=== PATIENT | female | born 1940 | race Caucasian/White ===

== ENCOUNTER 2021-02-09 10:00 | Outpatient (RCR) | payer OTHER, SELFPAY ==
--- NOTE | 2021-01-08 13:53 | PTOPEVAL ---
PHYSICAL THERAPY EVALUATION Thank you for referring Xin Kirkpatrick to [facility].? Gisele was evaluated for the dx of balance impairment/OA. The patient is scheduled to be seen for therapy?2 x/week for 4 weeks. Please review, sign, date and return this plan of care ERLIN. I agree with and certify that the following plan of care is medically necessary. Referring Physician Date Attending Provider: Lukas Delgado MD *PT Outpatient Evaluation Start: 01/08/21 12:36 Freq: Status: Active Protocol: Document 01/08/21 12:36 MLV (Rec: 01/08/21 13:39 MLV [id number]) Therapy Assessment Status Assessment Status Evaluation Evaluation Information Problem Diagnosis gait imbalance and OA Onset over last 3 years Additional Evaluation Detail Patient reports a decrease in balance and has had 5-7 falls in the last 6 months. Patient walks with a cane but admits to not using it all the time. The patient lives alone, I with all normal activities including driving/shopping. The patient reports feeling dizzy off and on and will fall because of it. The patient wants to be less dizzy feeling, walk without the cane and decrease her fear of falling. Pain Assessment Timing of Pain Assessment Timing of Pain Assessment Assessment Pain Scale Pain Scale Used Numeric (1 - 10) Self Report Pain Assessment Right Leg(s) Reported Pain Level 0 Pain Description Aching Pain Frequency Chronic Other Pain Description 3-5 with activity Pain Aggravating Factors None Pain Behaviors None Pain Score Pain Score 0: Self Report Interventions Used Interventions Used By Clinicians Education Pain Relief Interventions Used By None Patient Lower Extremity Range of Motion General Lower Extremity Range of Motion Reason Not Measured WFL/Left,WFL/Right Lower Extremity Muscle Strength Testing General Lower Extremity Strength Reason Not Measured WFL/Left,WFL/Right Gross Lower Extremity Strength (isometric tests) Posture Posture Standing Position Posture Evaluation View all Head/C-Spine Posture Forward Head Thoracic Spine Posture Increased Kyphosis Lumbar Spine Posture Decreased Lordosis Scapula Posture (L) Protracted,(R) Protracted Arm Posture (L) Internally Rotated,(R)
--- NOTE | 2021-02-09 16:41 | PTOPEVAL ---
PHYSICAL THERAPY DISCHARGE Thank you for referring Xin Kirkpatrick to [facility].? The patient has completed 9 visits for the dx of balance deficits/falls. Gisele has progressed well and goals are met. DC PT. Please review, sign, date and return this plan of care ERLIN. I agree with and certify the following plan of care is medically necessary. Referring Physician Date Attending Provider: Lukas Delgado MD *PT Outpatient Discharge Start: 01/08/21 12:36 Freq: Status: Active Protocol: Document 02/09/21 10:05 MLV (Rec: 02/09/21 11:01 MLV [id number]) Therapy Assessment Status Assessment Status Discharge Evaluation Information Problem Diagnosis gait imbalance and OA Onset over last 3 years Additional Evaluation Detail Patient reports feels she has improved quite a bit; her balance feels more steady and her head feels clearer . Patient denies trouble with her exercises and completes them 1 to 2 times a day. Patient also reports that it feels easier and safer to go up/down the steps. The patient has a follow up appt with the MD in 2 weeks. Pain Assessment Timing of Pain Assessment Timing of Pain Assessment Assessment Self Report Self Report Pain Level 0 Pain Score Pain Score 0: Self Report Balance Assessment Newman Balance Assessment Sitting to Standing Independent w/out Hands Unsupported Stance Ability Safely- 2 minutes Sitting Unsupported, Feet on Floor Safely- 2 minutes Standing to Sitting Safely, Minimal Hand Use Transfer Ability Safely, Minimal Hand Use Unsupported Stance- Eyes Closed Supervision, 10 seconds Unsupported Stance- Feet Together Supervision to maintain Reaching Forward while Standing Safely, 5 inches supervisory examiner Object From Floor Independent/Safe Look Behind Shoulder - Standing Shifts Weight Unilateral Turning 360 Degrees Turns , < 4 secs Unsupported Stance, Alternating Feet on 2 Steps w/Minimum Assist Stair Unsupported Tandem Stance Assist to Step-15 seconds Unilateral Leg Stance Lifts Leg/Unable to Hold NEWMAN Balance Evaluation Total Score (/56 42 points) Time Up Go (TUG) Timed Up and Go Test (TUG) (Seconds) 8 Assistive Devices Cane, Straight Functional Gait Assessment Requirements: A Marked 6 m (20 ft) Walkway That is Marked With a 30.48 cm (12 in) Width. Grading: Yordy the Highest Category That Applies Comments vestibular check: good
== END 2021-02-12 09:30 | disposition home or self-care (01) ==
LOC: ANHPT 10:00
PROVIDERS: PCP Family Medicine; Visit Provider Family Medicine
DX: R26.89 Other abnormalities of gait and mobility (principal); M89.49 Other hypertrophic osteoarthropathy, multiple sites
CPT/HCPCS: 97110; 97116; 97140; 97162

== ENCOUNTER 2021-02-27 11:55 | Outpatient (CLI) | payer OTHER, SELFPAY ==
--- NOTE | ~2021-02-27 | XR_ITS ---
EXAMINATION: XR chest 2V DATE: 02/27/2021 12:16 INDICATION: Wheezing, history of COPD and hypertension TECHNIQUE: PA and lateral views of the chest are obtained. COMPARISON: 04/20/2016 FINDINGS: The lungs are free of acute opacities. There is no pleural effusion or pneumothorax. The ca rdiomediastinal silhouette is normal. There is moderate thoracic spondylosis. IMPRESSION: 1. No acute cardiopulmonary abnormality. Reviewed, dictated and finalized at location A.
== END 2021-02-27 11:56 | disposition home or self-care (01) ==
PROVIDERS: PCP Family Medicine; Visit Provider Family Medicine
DX: R06.2 Wheezing (principal); M47.814 Spondylosis without myelopathy or radiculopathy, thoracic region
CPT/HCPCS: 71046

== ENCOUNTER 2021-07-18 12:05 | Outpatient (CLI) | payer OTHER, SELFPAY ==
--- NOTE | ~2021-07-18 | US_ITS ---
EXAMINATION: US venous doppler [facility] DATE: 07/18/2021 12:52 INDICATION: Bilateral lower limb edema TECHNIQUE: Addison scale images without and with compression and Doppler images of the bilateral lower e xtremity veins were obtained. COMPARISON: None FINDINGS: The right common femoral vein, profunda femoral vein, femoral vein, popliteal vein, peroneal trunk, p osterior tibial veins, and greater saphenous vein are patent. The left common femoral vein, profunda femoral vein, femoral vein, popliteal vein, peroneal trunk, po sterior tibial veins, and greater saphenous vein are patent. IMPRESSION: 1. Patent bilateral lower extremity veins. No evidence of deep venous thrombosis. Reviewed, dictated and finalized at location B. EKEEPER ENGINEERING IMPRESSION: 1. Patent bilateral lower extremity veins. No evidence of deep venous thrombosi s.
== END 2021-07-18 12:06 | disposition home or self-care (01) ==
LOC: ANHIMG 12:10
PROVIDERS: PCP Family Medicine; Visit Provider Nurse Practitioner Family
DX: R60.0 Localized edema (principal)
CPT/HCPCS: 93970

== ENCOUNTER 2021-07-23 12:56 | Outpatient (CLI) | payer OTHER, SELFPAY ==
[2021-07-23 13:36] LABS: Basophils Percent Auto 0.5 % (0.2-1.2); Eosinophils Absolute Auto 0.2 K/mm3 (0-0.3); Eosinophils Percent Auto 3.3 % (0-4.4); Hematocrit 35.2 % (37.0-47.0); Hemoglobin 11.7 g/dL (12.0-15.0); Immature Granulocyte Absolute 0.06 K/mm3 (0.00-0.031); Immature Granulocyte Percent A 0.9 % (0-0.5); Lymphocytes Percent Auto 15.5 % (18.3-44.2); Mean Corpuscular HGB Conc 33.2 g/dl (32-36); Mean Corpuscular Volume 93.4 fl (80-100); Mean Platelet Volume 10.8 fl (7.4-10.4); Monocytes Absolute Auto 1.8 K/mm3 (0.1-0.6); Monocytes Percent Auto 28.3 % (2.6-8.5); Neutrophils Absolute Auto 3.3 K/mm3 (1.3-6.7); Neutrophils Percent Auto 51.5 % (45.5-73.1); Platelet Count Result 189 k/mm3 (150-375); Red Blood Count 3.77 M/mm3 (4.2-5.4); Red Cell Distribution Width 12.5 % (11.5-14.5); White Blood Count 6.5 K/mm3 (4.5-10.0)
[2021-07-23 13:42] LABS: Anion Gap 6 mmol/L (8-16); Blood Urea Nitrogen 17 mg/dL (7-17); Calcium 9.5 mg/dL (8.4-10.2); Carbon Dioxide 30 mmol/L (22-30); Chloride 102 mmol/L (98-107); Estimated Glomerular Filt Rate > 60; Glucose 106 mg/dL (65-110); Potassium 4.3 mmol/L (3.4-5.0); Sodium 138 mmol/L (137-145)
[2021-07-23 13:50] LABS: NT Pro B Type Natriuretic Pept 462 pg/mL (5-100)
[2021-07-23 13:53] LABS: D Dimer 2.02 ug/mL (<0.48)
== END 2021-07-23 12:57 | disposition home or self-care (01) ==
PROVIDERS: PCP Family Medicine; Visit Provider Nurse Practitioner Family
DX: M79.89 Other specified soft tissue disorders (principal); R06.02 Shortness of breath
CPT/HCPCS: 36415; 80048; 83880; 85025; 85380

== ENCOUNTER 2021-07-25 11:32 | Outpatient (CLI) | payer OTHER, SELFPAY ==
--- NOTE | 2021-07-25 11:33 | ECG_ITS ---
Measurements Intervals [place] Rate: 67 P: 0 CO: 104 QRS: -26 QRSD: 97 T: 28 QT: 435 QTc: 461 Interpretive Statements SINUS RHYTHM WITH SHORT CO INTERVAL INCOMPLETE RIGHT BUNDLE BRANCH BLOCK BORDERLINE ECG Electronically Signed On 07-25-2021 12:13:16 MECHATRONICS TECHNICIAN by Jose A Wilson D.O.
[2021-07-25 12:30] LABS: D Dimer 1.62 ug/mL (<0.48)
== END 2021-07-25 11:33 | disposition home or self-care (01) ==
LOC: ANHLAB 11:33
PROVIDERS: PCP Family Medicine; Visit Provider Nurse Practitioner Family
DX: R79.89 Other specified abnormal findings of blood chemistry (principal); I10 Essential (primary) hypertension; I45.10 Unspecified right bundle-branch block
CPT/HCPCS: 36415; 85380; 93005

== ENCOUNTER 2021-08-03 13:21 | Outpatient (CLI) | payer OTHER, SELFPAY ==
[2021-08-03 14:36] LABS: D Dimer 1.82 ug/mL (<0.48)
[2021-08-03 14:38] LABS: Anion Gap 5 mmol/L (8-16); Blood Urea Nitrogen 15 mg/dL (7-17); Calcium 9.5 mg/dL (8.4-10.2); Carbon Dioxide 29 mmol/L (22-30); Chloride 102 mmol/L (98-107); Estimated Glomerular Filt Rate > 60; Glucose 101 mg/dL (65-110); Sodium 136 mmol/L (137-145)
[2021-08-03 14:46] LABS: NT Pro B Type Natriuretic Pept 817 pg/mL (5-100)
== END 2021-08-03 13:22 | disposition home or self-care (01) ==
PROVIDERS: PCP Family Medicine; Visit Provider Nurse Practitioner Family
DX: R06.02 Shortness of breath (principal); R79.89 Other specified abnormal findings of blood chemistry
CPT/HCPCS: 36415; 80048; 83880; 85380

== ENCOUNTER 2021-08-07 10:57 | Outpatient (CLI) | payer OTHER, SELFPAY ==
--- NOTE | ~2021-08-07 | CT_ITS ---
EXAMINATION: CTA chest PE protocol EXAM DATE: 08/07/2021 11:36 INDICATION: Shortness of breath and positive d-dimer. TECHNIQUE: Spiral CTA of the chest (pulmonary arteries) was performed with 100 cc Omnipaque 350 intr avenous contrast injection. Images were acquired during the pulmonary arterial phase. Coronal maxi mum intensity projection 3D-reconstructions were created by the technologist on dedicated workstation . Axial, coronal and sagittal reformatted images were reviewed. The dose-length product (DLP) for t his examination was 301.80 mGy-cm. The exposure was tailored according to patient size (auto mA exp osure control), and iterative reconstruction (ASIR) was used as additional dose reduction technique. There is no prior study for comparison. FINDINGS: Pulmonary arteries are well opacified and without intraluminal filling defects. No thora cic aortic dissection. The lungs are clear. There are no pleural or pericardial effusions. Trach eobronchial tree is patent. There is no mediastinal, hilar or axillary lymphadenopathy. There is no pneumothorax. Mild cardiomegaly. No evidence of coronary arterial calcification. There is small sliding gastroesophageal hiatal hernia. Imaged portions of right renal lesions consistent with cyst s. There is thoracic spondylosis without osteoblastic or osteolytic lesions identified. Old left r ib fractures. IMPRESSION: 1. No pulmonary emboli or acute cardiopulmonary findings. 2. Mild cardiomegaly. 3. Small hiatal hernia. Reviewed, dictated and finalized at location A. R PHOTOVOLTAIC SYSTEMS ENGINEER
== END 2021-08-07 10:58 | disposition home or self-care (01) ==
PROVIDERS: PCP Family Medicine; Visit Provider Nurse Practitioner Family
DX: R06.02 Shortness of breath (principal); R79.89 Other specified abnormal findings of blood chemistry; I51.7 Cardiomegaly; K44.9 Diaphragmatic hernia without obstruction or gangrene
CPT/HCPCS: 71275; Q9967

== ENCOUNTER 2021-08-14 12:50 | Outpatient (CLI) | payer OTHER, SELFPAY ==
[2021-08-14 13:21] LABS: D Dimer 1.34 ug/mL (<0.48)
[2021-08-14 13:24] LABS: Anion Gap 9 mmol/L (8-16); Blood Urea Nitrogen 15 mg/dL (7-17); Calcium 9.3 mg/dL (8.4-10.2); Carbon Dioxide 26 mmol/L (22-30); Chloride 104 mmol/L (98-107); Estimated Glomerular Filt Rate 60; Glucose 108 mg/dL (65-110); Potassium 4.1 mmol/L (3.4-5.0); Sodium 139 mmol/L (137-145)
[2021-08-14 13:32] LABS: NT Pro B Type Natriuretic Pept 321 pg/mL (5-100)
== END 2021-08-14 12:51 | disposition home or self-care (01) ==
PROVIDERS: PCP Family Medicine; Visit Provider Nurse Practitioner Family
DX: I51.7 Cardiomegaly (principal); R06.02 Shortness of breath; R79.89 Other specified abnormal findings of blood chemistry; R60.0 Localized edema
CPT/HCPCS: 36415; 80048; 83880; 85380

== ENCOUNTER 2021-11-05 11:00 | Outpatient (RCR) | payer OTHER, SELFPAY ==
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
--- NOTE | 2021-10-09 15:49 | PTOPEVAL ---
PHYSICAL THERAPY PROGRESS REPORT Thank you for referring Xin Kirkpatrick to [facility].? The patient is scheduled to be seen for therapy? 1x/week for 4 weeks. Please review, sign, date and return this plan of care ERLIN. I agree with and certify that the following plan of care is medically necessary. Referring Physician Date Attending Provider: Lukas Delgado MD Progress Diagnosis gait abnormality Self Report Pain Assessment Bilateral Leg(s) Reported Pain Level 5 Pain Description Aching,Soreness,Tightness Other Pain Description Pain in bilateral lower legs L >R. Pain decreases after movement Pain Aggravating Factors Prolonged Position Pain Score Pain Score 5: Self Report Additional Pain Score Comments Pt states this pain is decreased after her exercises and after moving around her home. Pt was educated on how movement can be used as a pain management technique. Interventions Used Interventions Used By Clinicians Exercise Lower Extremity Muscle Strength Testing Hip Strength Bilateral Hip Flexion Strength 4 Good Hip Extension Strength 4 Good Hip Abduction Strength 3 Fair Knee Strength Bilateral Knee Flexion Strength 4- Good - Knee Extension Strength 4- Good - Balance Assessment Time Up Go (TUG) Timed Up and Go Test (TUG) (Seconds) 22 Assistive Devices Walker, Rollator Comments 1 month ago - 21 sec with cane today - 32 sec without AD 5 Time Sit to Stand Time in Seconds 54.53 5 Time Sit to Stand Comments 1 month ago 37.67 without Query Text:Normative Data: If Greater armrests Than 15 Seconds, 74% Increase Risk for Today Pt was nervous of Recurrent Falls falling and exhibited fear during testing for unknown reasons Gait Assessment 2 Minute Walk Total Distance Walked (feet) 193 2 Minute Walk Gait Speed Score (feet/ 1.60 second) 2 Minute Walk Test Comments Today with rollator 1 month ago 179 ft with cane Stair Climbing Assessment Stair Climbing Assessment Stair Climbing Assistive Devices Railings Number of Steps Climbed (Steps) 4 Number of Repetitions (Repetitions) 2 Technique Alternating Steps Stair Climbing Direction Both Up and Down Stair Climbing Ability Standby Assistance Stair Climbing Comments very slow requiring significant increased time to perform PT Clinical Summary
--- NOTE | 2021-11-05 11:41 | PTOPEVAL ---
PHYSICAL THERAPY DISCHARGE NOTE Thank you for referring Xin Kirkpatrick to [facility].? Please review, sign, date and return this plan of care ERLIN. I agree with and certify that the following plan of care is medically necessary. Referring Physician Date Referring Physician: Lukas Delgado MD Discharge Diagnosis gait abnormality Subjective Information states that she feels like she Query Text:As Reported By Patient/ is stronger and more capable. Family uses her rollator in and out of the clinic. She gets around her home and community with the rollator. Still states she has difficulty with stairs but continues to be resistant to asking family for help with laundry in the basement. Self Report Pain Assessment Bilateral Leg(s) Reported Pain Level 3 Pain Description Aching,Soreness,Tightness Other Pain Description . Pain Aggravating Factors Prolonged Position Interventions Used By Clinicians Exercise,Rest Pain Relief Interventions Used By Medication Patient Lower Extremity Muscle Strength Testing Hip Strength Bilateral Hip Flexion Strength 4+ Good + Hip Extension Strength 4+ Good + Hip Abduction Strength 4- Good - Knee Strength Bilateral Knee Flexion Strength 4 Good Knee Extension Strength 4 Good Balance Assessment Time Up Go (TUG) Timed Up and Go Test (TUG) (Seconds) 16 Assistive Devices Walker, Rollator Comments 1month ago: 22seconds with rollator 2 months ago - 21 sec with cane 5 Time Sit to Stand Time in Seconds 19.04 5 Time Sit to Stand Comments 1month ago: 54.53seconds Query Text:Normative Data: If Greater 2 months ago 37.67 without Than 15 Seconds, 74% Increase Risk for armrests Recurrent Falls Today Pt was nervous of falling and exhibited fear during testing for unknown reasons Gait Assessment 2 Minute Walk Total Distance Walked (feet) 286 2 Minute Walk Gait Speed Score (feet/ 2.38 second) 2 Minute Walk Test Comments 1month ago: 193 (1.6ft/seconds ) with rollator 2months ago 179 ft with cane General Exercise General Exercises Side Bilateral Exercise Type Active Exercise Description reviewed HEP Query Text:Record Sets, Reps, -she self issued squats for
== END 2021-11-06 11:06 | disposition home or self-care (01) ==
LOC: ANHPT 11:00
PROVIDERS: PCP Family Medicine; Visit Provider Family Medicine
DX: R27.0 Ataxia, unspecified (principal); I51.7 Cardiomegaly
CPT/HCPCS: 97110; 97116; 97162; 97530

== ENCOUNTER 2021-12-13 11:53 | Outpatient (CLI) | payer OTHER, SELFPAY ==
--- NOTE | ~2021-12-13 | XR_ITS ---
XR lumbar spine 2-3V DATE: 12/13/2021 12:10 INDICATION: Low back pain. No injury. TECHNIQUE: AP, lateral, coned lateral lumbosacral views COMPARISON: 07/17/2017 lumbar spine FINDINGS: There is mild thoracolumbar levoscoliosis. Diffuse osteopenia. There is grade 2 anterolisthesis at L4-5. There is moderate degenerative disc disease of the lumbar spine, relatively sparing L5-S1. Degenerative change at the mid and lower lumbar apophyseal joints. No fracture or bone destruction is evident. The lumbar pedicles are intact. The sacroiliac joints are intact. IMPRESSION: Mild thoracolumbar levoscoliosis Grade 2 anterolisthesis at L4-5; degenerative change at the apophyseal joints in the mid and lower mayank mbar spine Reviewed, dictated and finalized at location A. IMPRESSION: Mild thoracolumbar levoscoliosis Grade 2 anterolisthesis at L4-5; degenerative change at the apophyseal joints i n the mid and lower lumbar spine
== END 2021-12-13 11:54 | disposition home or self-care (01) ==
PROVIDERS: PCP Family Medicine; Visit Provider Physician Assistant Medical
DX: M54.50 Low back pain, unspecified (principal); M41.85 Other forms of scoliosis, thoracolumbar region; M43.16 Spondylolisthesis, lumbar region
CPT/HCPCS: 72100

== ENCOUNTER 2022-05-12 11:42 | Inpatient (IN) | payer OTHER, SELFPAY ==
[2022-05-12] VITALS (13 sets, daily range): BP systolic 118–158; BP diastolic 69–99; PULSE 57–78; RESP 14–21; TEMP 36.6–37.1; O2SAT 95–100; BMI 33.0
--- NOTE | ~2022-05-12 | XR_ITS ---
EXAM: XR ribs LT 2V w CXR 2V DATE: 05/12/2022 14:58 HISTORY: fall LEFT ANTERIOR RIB PAIN . COMPARISON: X-ray chest 05/12/2022 and 02/27/2021. FINDINGS: Decreased mineralization. Mildly displaced fractures of the anterolateral third through fi fth ribs on the left. No lytic or blastic lesion. Scattered degenerative changes. No erosion or perio steal change. Soft tissues within normal limits. IMPRESSION: Acute versus chronic left anterolateral third through fifth rib fractures, correlate with point tenderness. Reviewed, dictated and finalized at location K. IMPRESSION: Acute versus chronic left anterolateral third through fifth rib fra ctures, correlate with point tenderness.
--- NOTE | ~2022-05-12 | CT_ITS ---
EXAMINATION: CT brain wo con DATE: 05/12/2022 12:33 INDICATION: Dizziness. Syncope. Loss of consciousness. TECHNIQUE: Computed tomography (CT) of the head was performed without intravenous contrast. The mA wa s adjusted according to patient size. Iterative reconstruction technique was employed. The dose-lengt h product was 605.33 mGy-cm. COMPARISON: None FINDINGS: There are scattered areas of low attenuation in the cerebral white matter. There is an infa rct in left occipital lobe. There is no abnormal mass lesion or acute intracranial hemorrhage. The ve ntricles are normal in size. There is mild mucosal thickening in the ethmoid sinuses. The mastoid air cells are normal. The orbits are normal. IMPRESSION: 1. Infarct in left occipital lobe, likely acute or subacute. 2. Mild nonspecific cerebral white matter disease, which likely represents chronic small vessel ische koby disease. Reviewed, dictated and finalized at location A. IMPRESSION: 1. Infarct in left occipital lobe, likely acute or subacute. 2. 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
--- NOTE | ~2022-05-12 | CT_ITS ---
EXAMINATION: CTA brain carotid DATE: 05/12/2022 15:11 INDICATION: Acute CVA TECHNIQUE: Computed tomographic angiography (CTA) of the head was performed without and with 100 mL O mnipaque-350 intravenous contrast. CTA of the neck was performed with intravenous contrast. The dose- length product was 1130.47 mGy-cm. Maximum intensity projection and volume rendered 3D-reconstruction s were created by the technologist on a separate workstation. COMPARISON: None. FINDINGS: CT BRAIN: No acute large vessel infarct, intracranial hemorrhage, mass, or hydrocephalus. CTA HEAD: No large vessel occlusion, aneurysm, high flow vascular malformation, nidus or extravasation. CTA NECK: Aortic arch and proximal great vessels: Atherosclerotic calcifications at the visualized aortic arch and proximal great vessels. Right common carotid, carotid bifurcation, and internal carotid artery: Calcified and noncalcified pl aque at the bifurcation.There is 10% stenosis of the proximal right internal carotid artery relative to normal distal artery lumen diameter (NASCET criteria). Left common carotid, carotid bifurcation, and internal carotid artery: No plaque.Short segment of the proximal internal carotid artery just distal to the bifurcation is obscured by metal artifact. There is 0% stenosis of the proximal left internal carotid artery relative to normal distal artery lumen d iameter (NASCET criteria). Vertebral arteries: Short segment nonvisualization of the proximal left vertebral artery just distal to the origin due to beam hardening artifact from adjacent venous contamination. No significant plaqu e or stenosis. Right vertebral artery is dominant, Other findings: Multiple mixed cystic and solid heterogeneously enhancing right thyroid nodules measu ring up to 1.9 cm senescent changes in the lungs, with dependent atelectasis. Multilevel degenerative disc disease and facet arthropathy in the cervical spine. IMPRESSION: Short segments of the proximal left internal carotid and proximal vertebral arteries are obscured and therefore not evaluated. In the visualized vessels: No large vessel occlusion and no severe vertebra l or carotid stenosis. Right thyroid nodules, consider outpatient thyroid ultrasound for further manda acterization. Reviewed, dictated and finalized at location K. IMPRESSION: Short segments of the proximal left internal carotid and proximal vertebral art eries are obscured and therefore not evaluated. In the visualized vessels: No l arge vessel occlusion and no severe vertebral or carotid stenosis. Right thyroi d nodules, consider outpatient thyroid ultrasound for further characterization.
--- NOTE | ~2022-05-12 | XR_ITS ---
EXAMINATION: XR chest 1V portable DATE: 05/12/2022 12:21 INDICATION: Dizziness. TECHNIQUE: A single frontal view of the chest was obtained. COMPARISON: Chest 2 views 02/27/2021, chest CT 08/07/2021 FINDINGS: There is no pneumonia, pleural effusion, or pneumothorax. Cardiomegaly is noted. There are prominent paracardial fat pads. IMPRESSION: 1. Cardiomegaly. Reviewed, dictated and finalized at location A. IMPRESSION: 1. Cardiomegaly.
--- NOTE | ~2022-05-12 | MR_ITS ---
EXAMINATION: MR brain/brain stem wo/w con DATE: 05/14/2022 11:18 INDICATION: Acute cerebrovascular accident. TECHNIQUE: Magnetic resonance imaging (MRI) of the brain and brainstem was performed without and with 17 mL MultiHance intravenous contrast. COMPARISON: Head CT 05/12/2022 FINDINGS: There is an old infarct in left occipital lobe. There are scattered areas of nonspecific in creased T2-weighted signal intensity in the cerebral white matter, which is within normal limits for the patient's age. There is no intracranial hemorrhage, acute infarction, or abnormal intracranial ma ss lesion. The ventricles are normal in size. The orbits are normal. There are old fracture deformiti es of right zygomaticomaxillary complex. The mastoid air cells are normal. IMPRESSION: 1. 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 Reviewed, dictated and finalized at location A.
--- NOTE | 2022-05-12 11:44 | ECG_ITS ---
Measurements Intervals [place] Rate: 62 P: 98 GA: 196 QRS: -30 QRSD: 92 T: 20 QT: 439 QTc: 449 Interpretive Statements SINUS RHYTHM WITH SINUS ARRHYTHMIA INCOMPLETE RIGHT BUNDLE BRANCH BLOCK DELAYED PRECORDIAL R/S TRANSITION BASELINE ARTIFACT- I, II, AVR, AVL, AVF BORDERLINE ECG COMPARED TO ECG 07/25/2021 12:10:57 SINUS ARRHYTHMIA NOW PRESENT Electronically Signed On 05-12-2022 14:01:04 CDT by Jose A Wilson D.O.
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
[2022-05-12 12:11] LABS: Basophils Percent Auto 0.9 % (0.2-1.2); Eosinophils Absolute Auto 0.1 K/mm3 (0-0.3); Eosinophils Percent Auto 1.5 % (0-4.4); Hematocrit 35.3 % (37.0-47.0); Hemoglobin 11.4 g/dL (12.0-15.0); Immature Granulocyte Absolute 0.07 K/mm3 (0.00-0.031); Immature Granulocyte Percent A 1.5 % (0-0.5); Lymphocytes Absolute Auto 0.85 K/mm3 (0.9-3.2); Lymphocytes Percent Auto 18.2 % (18.3-44.2); Mean Corpuscular HGB Conc 32.3 g/dl (32-36); Mean Corpuscular Hemoglobin 29.8 pg (26-34); Mean Corpuscular Volume 92.2 fl (80-100); Mean Platelet Volume 10.8 fl (7.4-10.4); Monocytes Absolute Auto 1.1 K/mm3 (0.1-0.6); Monocytes Percent Auto 22.6 % (2.6-8.5); Neutrophils Absolute Auto 2.6 K/mm3 (1.3-6.7); Neutrophils Percent Auto 55.3 % (45.5-73.1); Platelet Count Result 174 k/mm3 (150-375); Red Blood Count 3.83 M/mm3 (4.2-5.4); Red Cell Distribution Width 12.6 % (11.5-14.5); White Blood Count 4.7 K/mm3 (4.5-10.0)
[2022-05-12 12:22] LABS: Alanine Aminotransferase 17 U/L (6-35); Albumin Level 4.5 g/dL (3.5-5.1); Alkaline Phosphatase 49 U/L (38-126); Anion Gap 5 mmol/L (8-16); Aspartate Amino Transferase 29 U/L (14-36); Blood Urea Nitrogen 10 mg/dL (7-17); Calcium 9.3 mg/dL (8.4-10.2); Carbon Dioxide 29 mmol/L (22-30); Chloride 105 mmol/L (98-107); Estimated CRCL calculation 46 ml/min; Estimated Glomerular Filt Rate > 60; Glucose 117 mg/dL (65-110); Potassium 3.9 mmol/L (3.4-5.0); Sodium 139 mmol/L (137-145)
[2022-05-12 12:31] LABS: INR 1.1; Partial Thromboplastin Time 28.1 SECONDS (22.3-36.8); Prothrombin Time 13.7 Seconds (11.1-14.7)
[2022-05-12 12:36] LABS: Troponin I < 0.012 ng/mL (0.000-0.034)
[2022-05-12 13:25] LABS: SARS-CoV-2 RNA PCR Negative
[2022-05-12] MEDS: ASPIRIN 325 MG TABLET PO (14:16)
[2022-05-12 14:17] LABS: Appearance Urine Clear (Clear); Bilirubin Urine Negative (Negative); Blood Urine Negative (Negative); Color Urine Yellow (Yellow); Glucose Urine UA Negative (Negative); Ketones Urine Negative (Negative); Leukocyte Esterase Ur Negative LEU/UL (Negative); Nitrate Urine Negative (Negative); Protein Urine Negative (Negative); Specific Grav Ur 1.015 (1.001-1.035); Urobilinogen Urine 0.2 mg/dL (<2.0); pH Urine 6.5 (5.0-9.0)
[2022-05-12 14:19] LABS: Add Urine Microscopic? NO
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
--- NOTE | 2022-05-12 16:53 | ADMGEN ---
This patient, Xin Kirkpatrick, was admitted to 2 Medical Room 256-. Patient/family oriented to hospital policies and general routines including ID bracelet, bed and alarms, visiting hours, pain management, procedures, bathroom and other care routines, personal items, smoking policy, room service/diet, and visiting hours. Information on how to activate the Rapid Response Team has been discussed. Patient/Family are encouraged to report perceived risks to care and to ask questions if they do not understand what they are told or what they should do.
[2022-05-13] VITALS (11 sets, daily range): BP systolic 122–149; BP diastolic 52–77; PULSE 59–94; RESP 16–18; TEMP 36.6–37.1; O2SAT 93–96
--- NOTE | 2022-05-13 | ECHO_ITS ---
Patient Info Name: Xin Kirkpatrick Age: 81 years : 1940 Gender: Female Ht: 62 in Wt: 180 lbs BSA: 1.92 m2 HR: 78 bpm BP: 122 / 54 mmHg Technical Quality: Good, Fair Exam Date: 05/13/2022 11:44 AM Exam Location: [facility] Pulmonary Exam Room: 256 Patient Status: Inpatient Admit Date: 05/12/2022 Staff Ordering Physician: Diane Rae PA-C Local Government Legislator: Kateryna Royal RDCS Attending Provider: Kamryn Chris DO Referring Physician: Butch CHANG; Exam Type: CA echo doppler color flow Study Info Indications - stroke htn hld Complete two-dimensional, color flow and Doppler transthoracic echocardiogram is performed. Summary 1. Complete two-dimensional, color flow and Doppler transthoracic echocardiogram is performed. 2. Normal LV size and wall thickness, normal LV systolic function, ejection fraction about 65-70%, grade 1 diastolic dysfunction. Mild to moderate left atrial enlargement. Mild mitral annular calcification, no significant MR. Normal aortic valve structure, no hemodynamically significant stenosis. Trace TR, moderate pulmonary hypertension, estimated RVSP 46 mmHg. Left Ventricle Left ventricular chamber dimension is normal. Left ventricular systolic function is normal, estimated at 65-70%. There is no increased left ventricular wall thickness. The left ventricular diastolic function is grade I diastolic dysfunction. Right Ventricle Right ventricular chamber dimension is normal. Right ventricular systolic function is normal. Left Atria Left atrial chamber dimension is moderately enlarged. Right Atria Right atrial chamber dimension is normal. Linear artifact in the right atrium suggestive of catheter(s), pacemaker lead(s), or ICD lead(s). Aortic Valve The aortic valve is normal. There is no aortic valve stenosis. Pulmonic Valve The pulmonic valve is not well visualized. Mitral Valve The mitral valve has normal leaflets. There is trace mitral valve regurgitation. The mitral valve annulus is mildly calcified. Tricuspid Valve The tricuspid valve leaflets are normal. There is trace tricuspid valve regurgitation. Moderate pulmonary hypertension, estimated pulmonary arterial systolic pressure is 46 mmHg. Pericardium/Pleural The pericardium appears epicardial fat pad. There is trivial pericardial effusion. Left Ventricular Outflow Tract Name Value Normal LVOT 2D LVOT Diameter 2.0 cm LVOT Doppler LVOT Peak Gradient 6 mmHg LVOT Mean Gradient 4 mmHg LVOT VTI 27 cm LVOT VTI/AV VTI Ratio 0.9 LVOT Stroke Volume 86 ml LVOT CO 18.0 l/min LVOT CI 9.3 l/min/m2 Pulmonic Valve Name Value Normal PV Doppler PV P
[2022-05-13 05:36] LABS: Anion Gap 6 mmol/L (8-16); Blood Urea Nitrogen 11 mg/dL (7-17); Calcium 9.2 mg/dL (8.4-10.2); Carbon Dioxide 29 mmol/L (22-30); Chloride 102 mmol/L (98-107); Estimated CRCL calculation 46 ml/min; Estimated Glomerular Filt Rate > 60; Glucose 100 mg/dL (65-110); Magnesium 2.1 mg/dL (1.6-2.3); Potassium 3.5 mmol/L (3.4-5.0); Sodium 137 mmol/L (137-145)
[2022-05-13] MEDS: FUROSEMIDE 40 MG TABLET PO (08:37)
[2022-05-13] MEDS: ATORVASTATIN 40 MG TABLET PO (08:37)
[2022-05-13] MEDS: FERROUS SULFATE 324 MG TABLET PO (08:37)
[2022-05-13] MEDS: CHOLECALCIFEROL 400 UNITS TABLET (VIT D) PO (08:37)
[2022-05-13] MEDS: CALCIUM CARBONATE (OSCAL) 500 MG TABLET PO (08:37)
[2022-05-13] MEDS: MELOXICAM 7.5 MG TABLET 15 MG PO (08:37)
[2022-05-13] MEDS: ESCITALOPRAM OXALATE 10 MG TABLET 20 MG PO (08:37)
[2022-05-13] MEDS: ASPIRIN 81 MG CHEWABLE TABLET PO (08:37)
[2022-05-13] MEDS: LOSARTAN POTASSIUM 50 MG TABLET PO (08:38)
[2022-05-13] MEDS: SACCHAROMYCES BOULARDII 250 MG CAPSULE PO ×2 (08:38→17:04)
[2022-05-13] MEDS: PANTOPRAZOLE 40 MG TABLET PO (08:38)
[2022-05-13] MEDS: traMADol HCL (*CRX) 50 MG TABLET PO ×2 (08:39→17:06)
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
--- NOTE | 2022-05-13 14:12 | PM.IMPN ---
Progress Note: A&P Assessment and Plan (1) Acute cerebrovascular accident: Code(s): I63.9 - Cerebral infarction, unspecified Status: Acute Assessment and Plan: The patient was normal when she went to bed last night at about 09:00 this morning she woke with severe vertigo. Brain CT shows an acute versus subacute infarction in the left occipital lobe and she has been admitted for stroke workup. Continue telemetry- no arrhythmia. Brain MRI pending echocardiogram completed and final read pending, CTA of the head and neck without LVO. given aspirin 325 mg x 1 in the ER. continue baby aspirin daily start Plavix 75 mg p.o. daily x3 weeks atorvastatin dose will be increased to [address] Ramirez, Neurology, consulted and her input is appreciated will give permissive hypertension he the initial 24 hours and then resume antihypertensives as BP tolerates PT OT evaluation (2) Hypertension: Qualifiers: Hypertension type: primary hypertension Qualified Code(s): I10 - Essential (primary) hypertension Code(s): I10 - Essential (primary) hypertension Status: Chronic Assessment and Plan: Blood pressures were reviewed and they are reasonably well controlled. as above (3) Hyperlipidemia: Qualifiers: Hyperlipidemia type: mixed hyperlipidemia Qualified Code(s): E78.2 - Mixed hyperlipidemia Code(s): E78.5 - Hyperlipidemia, unspecified Status: Chronic Assessment and Plan: as above (4) Obstructive sleep apnea: Code(s): G47.33 - Obstructive sleep apnea (adult) (pediatric) Status: Chronic Assessment and Plan: CPAP autotitrate use while hospitalized. (5) Chronic anemia: Code(s): D64.9 - Anemia, unspecified Status: Chronic Assessment and Plan: Hemoglobin and hematocrit are stable on review of previous labs. monitor for bleeding on dual anti-platelet therapy Plan code status: Full code Disposition: patient lives alone will likely need home health at discharge Diet: heart healthy Time Spent With Patient Time with patient: 15 - 25 minutes Subjective Date/time seen: 05/13/22 14:12 Interval history: Pleasant 81-year-old female with hypertension, hyperlipidemia, and sleep apnea who presented to the emergency department for evaluation of dizziness and syncope. CT head obtained in emergency room shows likely acute or subacute infarct in the left occipital lobe. She was admitted for neuro evaluation. Patient is sitting in bed. She still has intermittent complaints of dizziness. She denies unilateral extremity weakness or loss of sensation. No slurred speech or word finding. She denies headache or vision changes. Review of Systems Review of Systems: All systems reviewed & are unremarkable except as noted in HPI and below Exam Narrative: General: Well-developed female supine in bed in no acute distress. HEENT: Normocephalic, atraumatic. PERRL, EOMI. Sclera anicteric. Oral mucosa moist. Oropharynx clear. Neck: Supple. No carotid bruits. Respiratory: Lungs are clear to auscultation bilaterally. Respirations regular nonlabored. mild tenderness to palpation over the left lateral mid ribs. Cardiovascular: Regular rate and rhythm with S1-S2. No murmur. Gastrointestinal: Abdomen is soft, nontender, and nondistended with positive bowel sounds. Skin: Warm and dry. No rash or lesions on limited exam. large ecchymosis left flank no hematoma noted Extremities: No cyanosis or clubbing. Legs are large with findings of lipedema. No pitting edema. Negative Daysi sign bilaterally. No palpable knots or cords. Peripheral pulses intact. Neurological: Alert and oriented x3. Cranial nerves 2-12 are grossly intact. Speech is clear. No facial asymmetry. Mild dysmetria with [id number]. Mild dysmetria with rapid alternating movements and heel to major on the left. No pronator drift. St
[2022-05-13] MEDS: CLOPIDOGREL BISULFATE 75 MG TABLET PO (15:53)
[2022-05-13] MEDS: MELATONIN 5 MG TABLET PO (20:47)
[2022-05-13] MEDS: TRIAMCINOLONE ACET 0.5% CREAM 15 GM TUBE 1 APPLIC TOPICAL (20:47)
[2022-05-14] VITALS: PULSE 80
[2022-05-14 02:18] VITALS: PULSE 59; RESP 18; O2SAT 95
[2022-05-14 04:00] VITALS: PULSE 54
[2022-05-14 06:25] VITALS: BP 132/67; PULSE 55; RESP 18; TEMP 36.4; O2SAT 96
[2022-05-14 07:47] LABS: Cholesterol 138 mg/dL (0-200); HDL Direct 50 mg/dL; Triglycerides 67 mg/dL (<150)
[2022-05-14 07:58] LABS: LDL Cholesterol Direct 59 mg/dL
[2022-05-14 08:00] VITALS: PULSE 51
[2022-05-14 08:21] LABS: Hemoglobin A1C 5.5 % (<5.7)
[2022-05-14] MEDS: ASPIRIN 81 MG CHEWABLE TABLET PO (08:49)
[2022-05-14] MEDS: CLOPIDOGREL BISULFATE 75 MG TABLET PO (08:49)
[2022-05-14] MEDS: SACCHAROMYCES BOULARDII 250 MG CAPSULE PO (08:50)
[2022-05-14] MEDS: PANTOPRAZOLE 40 MG TABLET PO (08:50)
[2022-05-14] MEDS: ATORVASTATIN 40 MG TABLET PO (08:50)
[2022-05-14] MEDS: CHOLECALCIFEROL 400 UNITS TABLET (VIT D) PO (08:50)
[2022-05-14] MEDS: ESCITALOPRAM OXALATE 10 MG TABLET 20 MG PO (08:50)
[2022-05-14] MEDS: CALCIUM CARBONATE (OSCAL) 500 MG TABLET PO (08:50)
[2022-05-14] MEDS: FERROUS SULFATE 324 MG TABLET PO (08:50)
[2022-05-14 12:42] VITALS: PULSE 66
--- NOTE | 2022-05-14 12:53 | PM.DS ---
DS: Admitting Diagnosis Discharge Date 05/14/2022 1314 Admitting Diagnosis Acute CVA Hypertension DS: Discharge Diagnosis Discharge Diagnosis (1) Acute cerebrovascular accident: Code(s): I63.9 - Cerebral infarction, unspecified Status: Acute (2) Syncope and collapse: Code(s): R55 - Syncope and collapse Status: Acute (3) Dizziness: Code(s): R42 - Dizziness and giddiness Status: Acute (4) Hypertension: Qualifiers: Hypertension type: primary hypertension Qualified Code(s): I10 - Essential (primary) hypertension Code(s): I10 - Essential (primary) hypertension Status: Chronic (5) Hyperlipidemia: Qualifiers: Hyperlipidemia type: mixed hyperlipidemia Qualified Code(s): E78.2 - Mixed hyperlipidemia Code(s): E78.5 - Hyperlipidemia, unspecified Status: Chronic DS: Summary Hospital Course Reason for hospitalization: Dizziness, syncope Hospital Course: Xin Kirkpatrick is an 81-year-old female with medical comorbidities of hypertension, hyperlipidemia, sleep apnea and h/o traumatic brain injury. She presented to the emergency department for evaluation of dizziness and syncope. She was in her usual state of health when she went to bed the previous night, however, she awoke at 09:00 on the day of admission, she felt extremely dizzy when was getting out of bed. She reported ?my head was spinning at a frightening pace.? She reached for her walker and she was able to ambulate to the bathroom with some difficulties, as she did not feel as though she could walk in a straight line. Thereafter she walked to the bathroom and reported that her dizziness was a bit better. Eventually she got in the shower to get ready for restorationism, however the dizziness returned. She thinks that she may have had a brief syncopal episode, because the next thing she remembered was being on her knees in the shower. She had some discomfort in her left ribs though she does not think she sustained any injuries in the incident. Her vital signs were stable on arrival to the emergency department with the highest blood pressure reading being 158/70. No acute abnormalities were noted on her labs. Brain CT showed a likely acute or subacute infarct in the left occipital lobe.? She denied headache, visual changes, focal weakness, paresthesias, facial droop, dysarthria, and dysphagia. She believes her hypertension and hyperlipidemia are well controlled on medications.? She has no known history of cardiac dysrhythmia and she denies sensations of racing heart and palpitations. Patient was admitted to the medical floor and neurology was consulted. She was initiated on aspirin and plavix therapy. Lipitor was increased to 40 mg PO daily. Her blood pressure medications were initially held to allow for permissive hypertension in the first 24 hours. PT/OT was consulted. CTA head and neck showed no LVO. TTE showed normal LV systolic function, EF 65%, grad 1 diastolic dysfunction, mild to moderate LAE, trace TR and moderate pulmonary hypertension. No shunt was noted. MRI brain showed old infarct to the left occipital lobe. Rib xray did show possible acute versus old left 3-5th rib fracture. She had no c/o rib pain. PT/OT was consulted and home health therapy was recommended. The patient was monitored on telemetry for >48 hours without evidence of ectopy. The patient will be discharged home with assistance from her daughters and home health therapy. She was continued on high dose lipitor and baby aspirin. Plavix was discontinued d/t MRI suggesting an old infarct. The patient had improved dizziness. Vestibular therapy and referral to ENT is recommended. She was discharged home in stable condition. VS- T97.6F, HR 66, RR 18, BP 132/67, spO2 96% RA. Status at Discharge Cognitive/behavioral status at discharge: Alert and oriented x3. Forgetful. Functional status at discharge: uses cane/walker Overall status at discharg
== END 2022-05-14 13:40 | disposition home health service (06) | DRG 66 ==
LOC: ANHED 14:26 → ANH2MED 14:57
PROVIDERS: Emergency Medicine; Physician Assistant; Admitting Provider Student in an Organized Health Care Education/Training Program; Emergency Provider Emergency Medicine; PCP Family Medicine; Visit Provider Nurse Practitioner Family
DX: I63.9 Cerebral infarction, unspecified (principal); R55 Syncope and collapse; R42 Dizziness and giddiness; R29.701 NIHSS score 1; Z20.822 Contact with and (suspected) exposure to COVID-19; E78.5 Hyperlipidemia, unspecified; I10 Essential (primary) hypertension; D64.9 Anemia, unspecified; K21.9 Gastro-esophageal reflux disease without esophagitis; F32.A Depression, unspecified; G47.33 Obstructive sleep apnea (adult) (pediatric); M19.90 Unspecified osteoarthritis, unspecified site; M47.27 Other spondylosis with radiculopathy, lumbosacral region; Z87.820 Personal history of traumatic brain injury; Z90.710 Acquired absence of both cervix and uterus
CPT/HCPCS: 36415; 70450; 70496; 70498; 70553; 71045; 71046; 71100; 80048; 80053; 80061; 81003; 83036; 83735; 84443; 84484; 85025; 85610; 85730; 93005; 93306; 97110; 97116; 97161; 97165; 99285; A9270; A9577; C9803; J0131; Q9967; U0003; U0005

== ENCOUNTER 2022-12-24 15:02 | Outpatient (CLI) | payer OTHER, SELFPAY ==
--- NOTE | ~2022-12-24 | MR_ITS ---
MRA HEAD History: CVA Technique: 3D time of flight MRA of the head is performed. Findings: The right and left distal vertebral arteries and the basilar and posterior cerebral arterie s are normal. There is aplasia of the A1 segment of the left anterior cerebral artery, considered nor mal variant. Right and left distal internal carotid arteries and anterior and middle cerebral arterie s are otherwise unremarkable. There is no other aneurysm, stenosis, or occlusion. 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 No other significant findings. Reviewed, dictated and finalized at location M. 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 No other significant findings.
--- NOTE | ~2022-12-24 | MR_ITS ---
MRA NECK History: CVA Technique: Pre and postcontrast MRA of the neck is performed. 17 cc MultiHance gadolinium was adminis tered intravenously for postcontrast imaging. Findings: Both vertebral arteries are patent and show antegrade flow and appear normal. Right and lef t common carotid arteries and the right and left cervical internal carotid arteries and external casper tid arteries appear normal. The proximal right internal carotid artery demonstrates 0% stenosis relat angy to the normal distal artery lumen diameter. The proximal left internal carotid artery demonstrate s 0% stenosis relative to the normal distal artery lumen diameter. Impression: No occlusion or stenosis. Reviewed, dictated and finalized at location M. Impression: No occlusion or stenosis.
== END 2022-12-24 15:03 | disposition home or self-care (01) ==
PROVIDERS: PCP Family Medicine; Visit Provider Student in an Organized Health Care Education/Training Program
DX: Q04.3 Other reduction deformities of brain (principal); R42 Dizziness and giddiness; R55 Syncope and collapse; I63.9 Cerebral infarction, unspecified
CPT/HCPCS: 70544; 70549; A9577

== ENCOUNTER 2023-08-12 09:20 | Outpatient (CLI) | payer OTHER, SELFPAY ==
--- NOTE | ~2023-08-12 | XR_ITS ---
Clinical Indication: Bronchitis PA and lateral views of the chest: Comparison: 05/12/2022 Findings: The lungs are clear, without evidence of focal consolidation or pleural effusion. Possible COPD. Cardiomediastinal silhouette is within normal limits. Bones and soft tissues are unremarkable. Impression: Possible COPD. Clear lungs. Reviewed, dictated and finalized at location M. D OPERATIONS TECHNICIAN Impression: Possible COPD. Clear lungs.
[2023-08-12 09:55] LABS: Hematocrit 35.9 % (37.0-47.0); Hemoglobin 11.5 g/dL (12.0-15.0); Mean Corpuscular Hemoglobin 29.4 pg (26-34); Mean Corpuscular Volume 91.8 fl (80-100); Mean Platelet Volume 11.5 fl (7.4-10.4); Platelet Count Result 154 k/mm3 (150-375); Red Blood Count 3.91 M/mm3 (4.2-5.4); White Blood Count 4.4 K/mm3 (4.5-10.0)
[2023-08-12 10:12] LABS: Anion Gap 8 mmol/L (8-16); Blood Urea Nitrogen 14 mg/dL (7-17); Calcium 9.6 mg/dL (8.4-10.2); Carbon Dioxide 30 mmol/L (22-30); Chloride 103 mmol/L (98-107); Estimated Glomerular Filt Rate > 60; Glucose 110 mg/dL (65-110); Potassium 3.8 mmol/L (3.4-5.0); Sodium 141 mmol/L (137-145)
[2023-08-12 11:15] LABS: Alanine Aminotransferase 14 U/L (6-35); Albumin Level 4.4 g/dL (3.5-5.1); Alkaline Phosphatase 58 U/L (38-126); Aspartate Amino Transferase 24 U/L (14-36); Bilirubin,Total 1.2 mg/dL (0.2-1.3)
== END 2023-08-12 09:21 | disposition home or self-care (01) ==
PROVIDERS: PCP Family Medicine; Visit Provider Nurse Practitioner Adult Health
DX: J40 Bronchitis, not specified as acute or chronic (principal); R60.0 Localized edema; R26.89 Other abnormalities of gait and mobility
CPT/HCPCS: 36415; 71046; 80048; 80076; 84443; 85027

== ENCOUNTER 2023-08-19 17:15 | Outpatient (CLI) | payer OTHER, SELFPAY ==
--- NOTE | ~2023-08-19 | XR_ITS ---
EXAMINATION: XR chest 2V Exam Date/Time: 08/19/2023 17:24 WIRE STITCHER HISTORY: COPD, A FIB, SOB WORSENING OVER COUPLE WKS Comparison: 08/12/2023, 09/21/2015. RESULT: Lines, tubes, and devices: None. Lungs and pleura: Senescent changes, otherwise clear. Left lower lung noncalcified granuloma demonst rating long-term stability. Cardiomediastinal silhouette: Stable. Other: No acute osseous or upper abdominal finding. IMPRESSION: No acute cardiopulmonary process. Reviewed, dictated and finalized at location K. STITCHER
== END 2023-08-19 17:16 | disposition home or self-care (01) ==
PROVIDERS: PCP Family Medicine; Visit Provider Nurse Practitioner Family
DX: J44.9 Chronic obstructive pulmonary disease, unspecified (principal); R05.9 Cough, unspecified
CPT/HCPCS: 71046

== ENCOUNTER 2023-09-11 14:35 | Outpatient (CLI) | payer OTHER, SELFPAY ==
--- NOTE | 2023-09-12 09:34 | P.PCNPFT_ITS ---
PFT Procedure Performed PFT Procedure Performed Plethysmography (Lung Vol) Diffusing Cap (DLCO) Flow Vol Loop Spirometry w/o Bronchodil PFT Interpretation Lung volumes were evaluated using the body plethysmography technique and found to be within normal parameters. Spirometry results demonstrated normal expira tory flow rates and a normal FEV1 to FVC ratio of 72%. The lung diffusion capacity was mildly reduced, at 62% of the predicted value. No post- bronchodilator study was conducted. The flow-volume loop is unremarkable. Impression: Spirometry, lung volumes within the normal range. Mild reduction in lung diffusion capacity.
== END 2023-09-11 14:36 | disposition home or self-care (01) ==
PROVIDERS: PCP Family Medicine; Visit Provider Nurse Practitioner Adult Health
DX: J44.9 Chronic obstructive pulmonary disease, unspecified (principal)
CPT/HCPCS: 94375; 94726; 94729

== ENCOUNTER 2023-12-16 11:14 | Outpatient (CLI) | payer OTHER, SELFPAY ==
[2023-12-16 12:38] LABS: LDL Cholesterol Direct 57 mg/dL
== END 2023-12-16 11:15 | disposition home or self-care (01) ==
LOC: ANHLAB 11:18
PROVIDERS: PCP Family Medicine; Visit Provider Student in an Organized Health Care Education/Training Program
DX: I48.0 Paroxysmal atrial fibrillation (principal); I63.9 Cerebral infarction, unspecified; R41.3 Other amnesia; F32.5 Major depressive disorder, single episode, in full remission
CPT/HCPCS: 36415; 82607; 82746; 83721; 84443

== ENCOUNTER 2024-07-27 10:09 | Outpatient (CLI) | payer OTHER, SELFPAY ==
[2024-07-27 11:17] LABS: Hematocrit 35.7 % (37.0-47.0); Hemoglobin 11.4 g/dL (12.0-15.0); Mean Corpuscular HGB Conc 31.9 g/dl (32-36); Mean Corpuscular Hemoglobin 29.1 pg (26-34); Mean Corpuscular Volume 91.1 fl (80-100); Mean Platelet Volume 11.7 fl (7.4-10.4); Platelet Count Result 171 k/mm3 (150-375); Red Blood Count 3.92 M/mm3 (4.2-5.4)
[2024-07-27 11:32] LABS: Alanine Aminotransferase 12 U/L (6-35); Albumin Level 4.4 g/dL (3.5-5.1); Alkaline Phosphatase 57 U/L (38-126); Anion Gap 9 mmol/L (4-12); Aspartate Amino Transferase 22 U/L (14-36); Bilirubin,Total 0.7 mg/dL (0.2-1.3); Blood Urea Nitrogen 16 mg/dL (7-17); Carbon Dioxide 28 mmol/L (22-30); Chloride 102 mmol/L (98-107); Estimated Glomerular Filt Rate > 60; Glucose 84 mg/dL (65-110); Potassium 3.7 mmol/L (3.4-5.0); Sodium 139 mmol/L (137-145)
[2024-07-27 11:56] LABS: Iron 77 ug/dL (37-170)
[2024-07-27 12:05] LABS: Percent Iron Saturation 24 % (20-50)
[2024-07-27 13:11] LABS: Platelet Estimate Adequate (Adequate)
[2024-07-27 13:12] LABS: Band Neutrophils Percent 3 % (0-6); Eosinophils Absolute Manual 0.21 K/mm3 (0.02-0.50); Eosinophils Percent Manual 3 % (0-4); Lymphocytes Absolute Manual 1.19 K/mm3 (1.1-4.5); Lymphocytes Percent Manual 17 % (18-44); Monocytes Absolute Manual 1.12 K/mm3 (0.1-0.90); Monocytes Percent Manual 16 % (3-9); Neutrophils Absolute Manual 4.48 K/mm3 (1.7-7.2); Neutrophils Percent Manual 61 % (46-73); Total Cells Counted 100
[2024-07-27 13:15] LABS: Acanthocytes 2+
[2024-07-27 13:16] LABS: Ovalocytes 1+
[2024-07-27 13:17] LABS: Schistocytes None Seen
== END 2024-07-27 10:10 | disposition home or self-care (01) ==
PROVIDERS: PCP Family Medicine; Visit Provider Family Medicine
DX: K92.1 Melena (principal); I48.0 Paroxysmal atrial fibrillation; D64.9 Anemia, unspecified; K21.9 Gastro-esophageal reflux disease without esophagitis; I10 Essential (primary) hypertension
CPT/HCPCS: 36415; 80053; 82607; 82728; 83540; 83550; 84443; 85025

== ENCOUNTER 2024-08-10 09:40 | Outpatient (CLI) | payer OTHER, SELFPAY | END 2024-08-10 09:41 | disposition home or self-care (01) | LOC: ANHAUDIO 09:43 | PROVIDERS: PCP Family Medicine | DX: R42 Dizziness and giddiness (principal); H90.3 Sensorineural hearing loss, bilateral; Z71.89 Other specified counseling | CPT/HCPCS: 92557; 92567 ==

== ENCOUNTER 2024-09-09 13:25 | Outpatient (RCR) | payer SELFPAY | END 2024-09-09 23:59 | disposition home or self-care (01) | LOC: ANHAUDIO 13:25 | PROVIDERS: PCP Family Medicine | DX: Z46.1 Encounter for fitting and adjustment of hearing aid (principal) | CPT/HCPCS: 92593 ==

== ENCOUNTER 2024-11-01 12:30 | Outpatient (CLI) | payer OTHER, SELFPAY ==
[2024-11-01 13:04] LABS: Cholesterol 122 mg/dL (0-200); HDL Direct 55 mg/dL; Triglycerides 63 mg/dL (<150)
[2024-11-01 13:15] LABS: LDL Cholesterol Direct 47 mg/dL
== END 2024-11-01 12:31 | disposition home or self-care (01) ==
PROVIDERS: PCP Family Medicine; Visit Provider Internal Medicine Cardiovascular Disease
DX: E78.2 Mixed hyperlipidemia (principal)
CPT/HCPCS: 36415; 80061

== ENCOUNTER 2024-12-20 14:11 | Outpatient (CLI) | payer OTHER, SELFPAY ==
--- NOTE | ~2024-12-20 | XR_ITS ---
Lumbosacral Spine: AP and lateral views, with neutral, flexion, extension positioning Clinical History: Pain Findings: The normal lordotic curve is maintained. 17 mm anterolisthesis of L4 over L5 present. No in stability evident on flexion or extension. There is severe facet arthropathy throughout the lumbar sp ine. There are mild to moderate degenerative disc changes. There is 6 mm retrolisthesis of T12 over L 1. The sacroiliac joints are normally outlined. Impression: 17 mm anterolisthesis of L4 over L5. 6 mm retrolisthesis of T12 over L1. No instability evident on flexion or extension. Advanced degenerative spondylosis otherwise, as above. Reviewed, dictated and finalized at location . Impression: 17 mm anterolisthesis of L4 over L5. 6 mm retrolisthesis of T12 over L1. No instability evident on flexion or extension. Advanced degenerative spondylosis otherwise, as above.
[2024-12-20 14:51] LABS: Hematocrit 36.4 % (37.0-47.0); Hemoglobin 11.6 g/dL (12.0-15.0); Mean Corpuscular HGB Conc 31.9 g/dl (32-36); Mean Corpuscular Hemoglobin 28.8 pg (26-34); Mean Corpuscular Volume 90.3 fl (80-100); Mean Platelet Volume 11.2 fl (7.4-10.4); Platelet Count Result 167 k/mm3 (150-375); Red Blood Count 4.03 M/mm3 (4.2-5.4); Red Cell Distribution Width 13.2 % (11.5-14.5); White Blood Count 7.7 K/mm3 (4.5-10.0)
[2024-12-20 15:05] LABS: Alanine Aminotransferase 15 U/L (6-35); Albumin Level 4.5 g/dL (3.5-5.1); Alkaline Phosphatase 44 U/L (38-126); Anion Gap 9 mmol/L (4-12); Aspartate Amino Transferase 20 U/L (14-36); Blood Urea Nitrogen 13 mg/dL (7-17); Calcium 9.2 mg/dL (8.4-10.2); Carbon Dioxide 28 mmol/L (22-30); Chloride 102 mmol/L (98-107); Estimated Glomerular Filt Rate 57; Glucose 119 mg/dL (65-110); Potassium 3.7 mmol/L (3.4-5.0); Sodium 139 mmol/L (137-145)
[2024-12-20 15:07] LABS: Iron 82 ug/dL (37-170)
[2024-12-20 15:16] LABS: Percent Iron Saturation 25 % (20-50)
== END 2024-12-20 14:12 | disposition home or self-care (01) ==
PROVIDERS: PCP Family Medicine; Visit Provider Family Medicine
DX: I48.0 Paroxysmal atrial fibrillation (principal); M47.816 Spondylosis without myelopathy or radiculopathy, lumbar region; D64.9 Anemia, unspecified; G62.9 Polyneuropathy, unspecified; E78.2 Mixed hyperlipidemia
CPT/HCPCS: 36415; 72114; 80048; 80076; 82607; 82728; 83540; 83550; 84443; 85027

== ENCOUNTER 2025-01-29 09:42 | Outpatient (CLI) | payer OTHER, SELFPAY ==
--- NOTE | ~2025-01-29 | MR_ITS ---
MRI of the lumbar spine Clinical History: Spondylosis Technique: Axial T2-weighted images, and sagittal T1-weighted, T2-weighted, and T2 fat-sat images wer e acquired. Findings: No fracture and 5. There is 9 mm anterolisthesis of L4 over L5. There is 4 mm retrolisthesi s of L1 over L2. No suspicious bone marrow signal abnormality seen. At L1-L2, there is mild degenerative disc change. There is minimal disc bulge with mild to moderate f acet arthropathy. No central canal stenosis or left neural foraminal narrowing. Probable mild to mode rate right neural foraminal narrowing. At L2-L3, there is mild disc bulge with moderate facet arthropathy. No central canal stenosis. There is moderate bilateral neural foraminal narrowing. At L3-L4, there is mild disc bulge and severe facet arthropathy. No central canal stenosis. There is moderate to severe left neural foraminal narrowing, and minimal right neural foraminal narrowing. At L4-L5, there is disc bulge/uncovering with severe facet arthropathy, resulting in severe spinal ca nal stenosis/thecal sac compression, as well as severe bilateral neural foraminal, otherwise. At L5-S1, there is no disc bulge or herniation. There is moderate to advanced facet arthropathy. No c entral canal stenosis. There is probable mild to moderate bilateral neural foraminal narrowing. Paravertebral soft tissues are unremarkable. Impression: Severe degenerative spondylosis at L4-L5, as detailed above, with associated 9 mm anterolisthesis at this level. Additional moderate degenerative changes in the remainder of the lumbar spine, as above. Reviewed, dictated and finalized at [facility]. Impression: Severe degenerative spondylosis at L4-L5, as detailed above, with associated 9 mm anterolisthesis at this level. Additional moderate degenerative changes in the remainder of the lumbar spine, as above.
== END 2025-01-29 09:43 | disposition home or self-care (01) ==
PROVIDERS: PCP Family Medicine; Visit Provider Family Medicine
DX: M47.816 Spondylosis without myelopathy or radiculopathy, lumbar region (principal); M43.16 Spondylolisthesis, lumbar region
CPT/HCPCS: 72148

== ENCOUNTER 2025-02-08 13:43 | Outpatient (CLI) | payer OTHER, SELFPAY ==
--- NOTE | 2025-02-08 14:30 | NEURO_ITS ---
Impression: #Non diabetic person complaint was severe legs pain and gait dysfunction. ? # Severe neuropathy With no electrical response is obtained motor or sensory and abnormal needle examination as documented. # Findings suggestive of severe neuropathy, clinical correlation recommended. ? Nerve Conduction Studies Anti Sensory Summary Table ?Stim Site NR Peak (ms) P-T Amp (?V) Site1 Site2 Delta-P (ms) Dist (cm) Yasir (m/s) Left Sup Fibular Anti Sensory (Ant Lat Mall)??? NO RESPONSE 14 cm NR 14 cm Ant Lat Mall 16.0 Right Sup Fibular Anti Sensory (Ant Lat Mall)??? NO RESPONSE 14 cm NR 14 cm Ant Lat Mall 16.0 Left Sural Anti Sensory (Lat Mall)??? NO RESPONSE Calf NR Calf Lat Mall 16.0 Right Sural Anti Sensory (Lat Mall)??? NO RESPONSE Calf NR Calf Lat Mall 16.0 Motor Summary Table ?Stim Site NR Onset (ms) O-P Amp (mV) Site1 Site2 Delta-0 (ms) Dist (cm) Yasir (m/s) Left Peroneal Motor (Vastus Med)??? NO RESPONSE Ankle NR Popit Ankle 0.0 Popit NR Right Peroneal Motor (Vastus Med)??? DISPERSED RESPONSE Ankle NR Popit Ankle 37.0 Popit NR Left Tibial Motor (Abd Good Brev)??? NO RESPONSE Ankle NR Knee Ankle 0.0 Knee NR Right Tibial Motor (Abd Good Brev)??? NO RESPONSE Ankle NR Knee Ankle 0.0 Knee NR F Wave Studies ?NR F-Lat (ms) L-R F-Lat (ms) Left Peroneal (Mrkrs) (EDB)??? NO RESPONSE NR Right Peroneal (Mrkrs) (EDB)??? NO RESPONSE NR Left Tibial (Mrkrs) (Abd Hallucis)??? NO RESPONSE NR Right Tibial (Mrkrs) (Abd Hallucis)??? NO RESPONSE NR EMG ?Side Muscle Nerve Root Ins Act Fibs Amp Dur Recrt Comment Right AntTibialis Dp Br Fibular L4-5 Nml Nml Decr >12ms Nml Right Gastroc Tibial S1-2 Nml Nml Decr >12ms Nml Right Fibularis Long Sup Br Fibular L5-S1 Nml Nml Decr >12ms Nml Right Flex Dig Long Tibial L5-S2 Nml Nml Decr >12ms Nml Right Ext Dig Brev Dp Br Fibular L5, S1 Nml Nml Decr >12ms Nml Right QuadratusFem QuadFemoris L4-5, S1 Nml Nml Decr >12ms Nml Left AntTibialis Dp Br Fibular L4-5 Nml Nml Decr >12ms Nml Left Gastroc Tibial S1-2 Nml Nml Decr >12ms Nml Left Fibularis Long Sup Br Fibular L5-S1 Nml Nml Decr >12ms Nml Left Flex Dig Long Tibial L5-S2 Nml Nml Decr >12ms Nml Left Ext Dig Brev Dp Br Fibular L5, S1 Nml Nml Decr >12ms Nml Left QuadratusFem QuadFemoris L4-5, S1 Nml Nml Decr >12ms Nml
== END 2025-02-08 13:44 | disposition home or self-care (01) ==
PROVIDERS: PCP Family Medicine; Visit Provider Family Medicine
DX: G62.9 Polyneuropathy, unspecified (principal); M47.816 Spondylosis without myelopathy or radiculopathy, lumbar region
CPT/HCPCS: 95886; 95910

== ENCOUNTER 2025-06-06 10:53 | Outpatient (RCR) | payer SELFPAY | END 2025-06-06 23:59 | disposition home or self-care (01) | LOC: ANHAUDIO 10:53 | PROVIDERS: PCP Family Medicine; Visit Provider Family Medicine | DX: Z46.1 Encounter for fitting and adjustment of hearing aid (principal) | CPT/HCPCS: V5014 ==